=== PATIENT | female | born 1960 ===

== ENCOUNTER → 2018-04-03 | Outpatient (CLI) | payer BC ==
[~2018-04-03] MED LIST: ASP81 PO; CAR6.25 PO; FUR40 PO; GLY25 PO; LIS10 PO; LIS5 PO; MULT1CAP59 PO; NIA500 PO; OMEG-11 PO; PRAV40TA77 PO
--- NOTE | 2018-04-03 10:15 | RADIOLOGY IMAGING REPORT ---
FACILITY: [facility] - [place] PATIENT NAME: ANDRES NAQVI : [id number] MR: [id number] V: [id number] EXAM DATE: [id number] ORDERING PHYSICIAN: YANCY MOMIN TECHNOLOGIST: Sierra Duffy PROCEDURE:BILATERAL DIGITAL SCREENING MAMMOGRAM WITH CAD ASSISTED INTERPRETATION & 3D TOMOSYNTHESIS COMPARISON:Prior mammogram 09/30/12. INDICATIONS:SCREENING FINDINGS: A small amount of fibroglandular tissue is seen throughout the breasts. The parenchymal pattern has remained stable allowing for difference in mammographic technique & patient positioning. There are scattered benign appearing calcifications noted bilaterally. There is no demonstration of malignant appearing mass, malignant appearing calcifications or other secondary sign of malignancy in either breast. DIAGNOSTIC CATEGORY 2--BENIGN FINDING. RECOMMENDATIONS: ROUTINE MAMMOGRAM AND CLINICAL EVALUATION. IMPRESSION: BIRADS 2: Benign finding. No significant abnormality is seen. Dictated by: Carmen Espino M.D. on 04/03/2018 at 9:25 Transcribed by: AURE on 04/03/2018 at 9:38 Approved by: Carmen Espino M.D. on 04/03/2018 at 10:14 [facility]
== END ==
LOC: MAMO 04:13
PROVIDERS: ATTEND Obstetrics & Gynecology
DX: Z12.31 Encounter for screening mammogram for malignant neoplasm of breast (principal)
CPT/HCPCS: 77063; 77067

== ENCOUNTER → 2018-08-07 | Outpatient (CLI) | payer BC ==
--- NOTE | 2018-08-07 12:14 | RADIOLOGY IMAGING REPORT ---
[place] [facility] [place] NAME: Keyla Jo : 1960 MR: [id number] V: [id number] EXAM DATE: ORDERING PHYSICIAN: ZAKIA PATHAK TECHNOLOGIST: Location: [facility] Patient: Keyla Jo : 1960 Visit/Account:[id number] Date of Sevice: 08/07/2018 Chest with lateral, two views. HISTORY: Shortness of breath, cough. COMPARISON: 09/25/2007. The heart is mildly enlarged. Pulmonary vessels are mildly engorged. The mediastinum is not widened . Interstitial markings are minimally thickened bilaterally. No pleural fluid. Degenerative change s and several mild chronic appearing wedge deformities are present in the spine. IMPRESSION: Mild cardiomegaly and mild pulmonary vascular engorgement without kelly congestive heart failure. Report Dictated By: Boaz Gaston MD at 08/07/2018 12:09 PM Report E-Signed By: Boaz Gaston MD at 08/07/2018 12:10 PM WSN:[email or web address]
== END ==
LOC: LAB 11:12
PROVIDERS: ATTEND Internal Medicine Cardiovascular Disease
DX: R06.02 Shortness of breath (principal); I42.0 Dilated cardiomyopathy; I49.3 Ventricular premature depolarization; I10 Essential (primary) hypertension; I51.7 Cardiomegaly
CPT/HCPCS: 36415; 71046; 82310; 82374; 82435; 82565; 82947; 83880; 84132; 84295; 84520; 85027

== ENCOUNTER → 2018-08-10 | Outpatient (CLI) | payer BC | LOC: US 01:31 | PROVIDERS: ATTEND Internal Medicine Cardiovascular Disease | DX: I42.0 Dilated cardiomyopathy (principal); I49.3 Ventricular premature depolarization | CPT/HCPCS: C8929; Q9957 ==

== ENCOUNTER 2018-11-04 17:02 | Emergency (ER) | payer BC ==
[2018-11-04] MEDS ORDERED: NS(*) 0.9% 1000 ML BAG 1,000 ML IV ONE (17:10)
[2018-11-04] MEDS ORDERED: ONDANSETRON 4 MG/2 ML VIAL IVP ONE (17:10)
[2018-11-04] MEDS ORDERED: CARV12.578 PO (17:14)
[2018-11-04] MEDS ORDERED: POTA-23 PO (17:14)
[2018-11-04] MEDS ORDERED: FURO-47 PO (17:14)
[2018-11-04] MEDS ORDERED: DUL100/5PT INH (17:14)
--- NOTE | 2018-11-04 17:18 | ER Report ---
History and Physical Time Seen By MD: 17:17 Hx. of Stated Complaint: N/V, ABDO PAIN SINCE FRIDAY. ASSYMPTOMATIC TODAY (NOÉ ISAACS MD) HPI/ROS CHIEF COMPLAINT: Abdominal pain and abnormal labs HISTORY OF PRESENT ILLNESS: Patient sent here by an outside care facility reportedly had abnormal labs that over the white count greater than 20,000. Intermittent abdominal discomfort primarily left upper left lower for the last couple days however in the last 24 hours and completely pain-free nausea vomit ing one episode of loose stool no chest pain or shortness of breath has been history of diabetes stopped her medication and noticed her sugars in the 300s again patient states that she is currently pain-free and otherwise asymptomatic REVIEW OF SYSTEMS: Respiratory: No cough, no dyspnea. Cardiovascular: No chest pain, no palpitations. Gastrointestinal: Abdominal pain not current no vomiting Musculoskeletal: No back pain. Remainder of the 14 system rev: Yes (NOÉ ISAACS MD) Allergies: Coded Allergies: No Known Drug Allergies (Verified , 09/25/07) Home Meds Active Scripts Ondansetron 4 Mg Odt (ONDANSETRON 4 MG ODT) 4 Mg Tab.rapdis, 4 MG PO Q6H PRN for NAUSEA/VOMITING, #10 TAB Prov:SUJEY ROMAN DO 11/04/18 Ciprofloxacin Hcl 500 Mg Tab (CIPRO 500 MG TAB) 500 Mg Tablet, 500 MG PO BID for infection, #14 TAB Prov:SUJEY ROMAN DO 11/04/18 Reported Medications Mometasone/Formoterol (DULERA 100 MCG/5 MCG INHALER) 13 Gm Inh, 13 GM INH BID, INH 11/04/18 Carvedilol (CARVEDILOL) 12.5 Mg Tablet, 12.5 MG PO BID, #10 TAB 11/04/18 Potassium Chloride (KLOR-CON 10) 10 Meq Tablet.er, 10 MEQ PO QDAY 11/04/18 Furosemide (FUROSEMIDE) 40 Mg Tablet, 1 TAB PO DAILY, TAB 11/04/18 [place]-3 Fatty Acids/Fish Oil (FISH OIL 1,000 MG CAPSULE) Unknown Strength Capsule, PO, CAPSULE 03/13/18 Multivitamin (MULTIVITAMINS) 1 Each Capsule, 1 EACH PO, CAPSULE 03/13/18 Lisinopril (Prinivil) 10 Mg Tab, 10 MG PO QAM, 0 Refills 09/30/07 Aspirin (Childrens Chewable Aspirin) 81 Mg Chew, 81 MG PO QDAY OVER THE COUNTER MEDICATION 09/30/07 Reviewed Nurses Notes: Yes Old Medical Records Reviewed: Yes (NOÉ ISAACS MD) Smoking Status: Never Smoker (NOÉ ISAACS MD) Constitutional Vital Sign - Last 24 Hours 11/04/18 11/04/18 11/04/18 11/04/18 17:09 19:00 19:30 20:00 Temp 98.7 Pulse 95 111 105 99 Resp 20 B/P (MAP) 123/74 116/58 (77) 134/73 (93) 131/72 (91) Pulse Ox 94 87 98 98 O2 Delivery Room Air (SUJEY ROMAN DO) Physical Exam General Appearance: The patient is alert, has no immediate need for airway protection and no current signs of toxicity. [ ] Eyes: Pupils equal and round no injection. Respiratory: Chest is non tender, lungs are clear to auscultation. Cardiac: regular rate and rhythm [ ] Gastrointestinal: Abdomen is soft and non tender, no masses, bowel sounds normal. Musculoskeletal: Neck: Neck is supple and non tender. Extremities have full range of motion and are non tender. Skin: No rashes or lesions. [ ] DIFFERENTIAL DIAGNOSIS: After history and physical exam differential diagnosis was considered for colitis diverticulitis cholangitis pancreatitis (NOÉ ISAACS MD) Medical Decision Making Data Points Result Diagram: 11/04/18 1728 11/04/18 1728 Laboratory Hematology Test 11/04/18 17:28 11/04/18 19:15 11/04/18 20:16 Red Blood Count 4.75 M/uL (4.17-5.56) Mean Corpuscular Volume 85.8 fL (80.0-96.0) Mean Corpuscular Hemoglobin 28.7 pg (26.0-33.0) Mean Corpuscular Hemoglobin Concent 33.4 g/dL (32.0-36.0) Red Cell Distribution Width 14.4 % (11.5-14.5) Mean Platelet Volume 7.9 fL (7.2-11.1) Neutrophils (%) (Auto) 93.3 % (39.4-72.5) Lymphocytes (%) (Auto) 3.0 % (17.6-49.6) Monocytes (%) (Auto) 3.3 % (4.1-12.4) Eosinophils (%) (Auto) 0.1 % (0.4-6.7) Basophils (%) (Auto) 0.3 % (0.3-1.4) Nucleated RBC Relative Count (auto) 0.0 /100WBC Neutrophils # (Auto) 16.4 K/uL (2.0-7.4) Lymphocytes # (Auto) 0.5 K/uL (1.3-3.6) Monocytes # (Auto) 0.6 K/uL (0.3-1.0) Eosinophils # (Auto) 0.0 K/uL (0.0-0.5) Basophils # (Auto) 0.0 K/uL (0.0-0.1) Nucleated RBC Absolute Count (auto) 0.00 K/uL Prothrombin Time 14.8 seconds (12.0-14.4) Prothromb Time International Ratio 1.16 Activated Partial Thromboplast Time 39 seconds (23-35) Sodium Level 128 mmol/L (137-145) Potassium Level 4.0 mmol/L (3.5-5.0) Chloride Level 93 mmol/L (98-107) Carbon Dioxide Level 26 mmol/L (22-31) Blood Urea Nitrogen 31 mg/dl (7-18) Creatinine 1.30 mg/dl (0.52-1.04) Glomerular Filtration Rate Calc 42.1 Random Glucose 369 mg/dl (75-110) Calcium Level 8.7 mg/dl (8.4-10.2) Total Bilirubin 0.5 mg/dl (0.2-1.3) Aspartate Amino Transf (AST/SGOT) 25 U/L (0-35) Alanine Aminotransferase (ALT/SGPT) 22 U/L (0-56) Alkaline Phosphatase 140 U/L (0-126) Total Protein 7.2 g/dl (6.3-8.2) Albumin 3.5 g/dl (3.5-5.0) Lipase 107 U/L (23-300) Serum Alcohol < 10 mg/dl Urine Color Yellow Urine Clarity Slightly-cloudy Urine pH 5.0 pH (4.8-9.5) Urine Specific [place] 1.033 Urine Protein Negative mg/dL (NEGATIVE) Urine Glucose (UA) 50 mg/dL (NEGATIVE) Urine Ketones Negative mg/dL (NEGATIVE) Urine Blood Small (NEGATIVE) Urine Nitrite Negative (NEGATIVE) Urine Bilirubin Negative (NEGATIVE) Urine Urobilinogen Negative mg/dL (0.2-1.9) Urine Leukocyte Esterase Moderate (NEGATIVE) Urine RBC 4 /HPF (0-2/HPF) Urine WBC 50 /HPF (0-5/HPF) Urine Squamous Epithelial Cells Moderate /LPF (</=FEW) Urine Transitional Epithelial Cells Few /LPF (NONE-FEW) Urine Bacteria Negative /HPF (NONE-FEW) Urine Mucus None /HPF (NONE-FEW) Whole Blood Glucose 254 mg/DL (75-110) Chemistry Test 11/04/18 17:28 11/04/18 19:15 11/04/18 20:16 White Blood Count 17.5 k/uL (4.5-11.0) Red Blood Count 4.75 M/uL (4.17-5.56) Hemoglobin 13.6 g/dL (12.0-16.0) Hematocrit 40.8 % (34.0-47.0) Mean Corpuscular Volume 85.8 fL (80.0-96.0) Mean Corpuscular Hemoglobin 28.7 pg (26.0-33.0) Mean Corpuscular Hemoglobin Concent 33.4 g/dL (32.0-36.0) Red Cell Distribution Width 14.4 % (11.5-14.5) Platelet Count 293 K/uL (150-450) Mean Platelet Volume 7.9 fL (7.2-11.1) Neutrophils (%) (Auto) 93.3 % (39.4-72.5) Lymphocytes (%) (Auto) 3.0 % (17.6-49.6) Monocytes (%) (Auto) 3.3 % (4.1-12.4) Eosinophils (%) (Auto) 0.1 % (0.4-6.7) Basophils (%) (Auto) 0.3 % (0.3-1.4) Nucleated RBC Relative Count (auto) 0.0 /100WBC Neutrophils # (Auto) 16.4 K/uL (2.0-7.4) Lymphocytes # (Auto) 0.5 K/uL (1.3-3.6) Monocytes # (Auto) 0.6 K/uL (0.3-1.0) Eosinophils # (Auto) 0.0 K/uL (0.0-0.5) Basophils # (Auto) 0.0 K/uL (0.0-0.1) Nucleated RBC Absolute Count (auto) 0.00 K/uL Prothrombin Time 14.8 seconds (12.0-14.4) Prothromb Time International Ratio 1.16 Activated Partial Thromboplast Time 39 seconds (23-35) Glomerular Filtration Rate Calc 42.1 Calcium Level 8.7 mg/dl (8.4-10.2) Total Bilirubin 0.5 mg/dl (0.2-1.3) Aspartate Amino Transf (AST/SGOT) 25 U/L (0-35) Alanine Aminotransferase (ALT/SGPT) 22 U/L (0-56) Alkaline Phosphatase 140 U/L (0-126) Total Protein 7.2 g/dl (6.3-8.2) Albumin 3.5 g/dl (3.5-5.0) Lipase 107 U/L (23-300) Serum Alcohol < 10 mg/dl Urine Color Yellow Urine Clarity Slightly-cloudy Urine pH 5.0 pH (4.8-9.5) Urine Specific [place] 1.033 Urine Protein Negative mg/dL (NEGATIVE) Urine Glucose (UA) 50 mg/dL (NEGATIVE) Urine Ketones Negative mg/dL (NEGATIVE) Urine Blood Small (NEGATIVE) Urine Nitrite Negative (NEGATIVE) Urine Bilirubin Negative (NEGATIVE) Urine Urobilinogen Negative mg/dL (0.2-1.9) Urine Leukocyte Esterase Moderate (NEGATIVE) Urine RBC 4 /HPF (0-2/HPF) Urine WBC 50 /HPF (0-5/HPF) Urine Squamous Epithelial Cells Moderate /LPF (</=FEW) Urine Transitional Epithelial Cells Few /LPF (NONE-FEW) Urine Bacteria Negative /HPF (NONE-FEW) Urine Mucus None /HPF (NONE-FEW) Whole Blood Glucose 254 mg/DL (75-110) Coagulation Test 11/04/18 17:28 Prothrombin Time 14.8 seconds Prothromb Time International Ratio 1.16 Activated Partial Thromboplast Time 39 seconds Toxicology Test 11/04/18 17:28 Serum Alcohol < 10 mg/dl Urinalysis Test 11/04/18 19:15 Urine Color Yellow Urine Clarity Slightly-cloudy Urine pH 5.0 pH (4.8-9.5) Urine Specific [place] 1.033 Urine Protein Negative mg/dL (NEGATIVE) Urine Glucose (UA) 50 mg/dL (NEGATIVE) Urine Ketones Negative mg/dL (NEGATIVE) Urine Blood Small (NEGATIVE) Urine Nitrite Negative (NEGATIVE) Urine Bilirubin Negative (NEGATIVE) Urine Urobilinogen Negative mg/dL (0.2-1.9) Urine Leukocyte Esterase Moderate (NEGATIVE) Urine RBC 4 /HPF (0-2/HPF) Urine WBC 50 /HPF (0-5/HPF) Urine Squamous Epithelial Cells Moderate /LPF (</=FEW) Urine Transitional Epithelial Cells Few /LPF (NONE-FEW) Urine Bacteria Negative /HPF (NONE-FEW) Urine Mucus None /HPF (NONE-FEW) (SUJEY ROMAN DO) Microbiology Microbiology Date/Time Source Procedure Growth Status 11/04/18 19:15 Clean Catch Midstream Ur Urine Culture - Preliminary Gram Negative Jose Resulted (SUJEY ROMAN DO) EKG/Imaging Imaging Results: CT scan of the abdomen and pelvis with IV contrast was obtained. The results of the study are EXAMINATION: CT abdomen and pelvis with IV contrast HISTORY: Abdominal pain. TECHNIQUE: Axial CT images of the abdomen and pelvis were obtained with IV contrast, with coronal and sagittal 2D reconstructed images. One of the following dose optimization techniques was utilized in the performance of this exam: Automated exposure control; adjustment of the mA and/or kV according to the patient's size; or use of an iterative reconstruction technique. Specific details can be referenced in the facility's radiology CT exam operational policy. Contrast: 75 mL of IV Isovue-370. COMPARISON: 09/29/2007. FINDINGS: Liver: Fatty infiltration of the liver. No focal liver lesion. The hepatic veins and portal veins are patent. Gallbladder and bile ducts: Negative. Spleen: Negative. Pancreas: Negative. Adrenal glands: Negative. Kidneys: Normal size and morphology of both kidneys. There are patchy regions of decreased cortical enhancement in both kidneys suspicious for bilateral pyelonephritis, slightly greater on the left. No urinary calculi or hydronephrosis. Bowel and peritoneum: The small bowel and colon are normal in caliber, without evidence of obstruction or any focal inflammatory process. No bowel wall thickening. Normal appendix. There is a trace amount of free fluid in the pelvis which is nonspecific. No free intraperitoneal air. Pelvic structures: Mild diffuse bladder wall thickening is suspicious for urinary infection/cystitis. Calcified uterine fibroids. No large adnexal cyst. Lymph node assessment: Negative. Vessels: Mild vascular calcifications. Normal caliber abdominal aorta. The IVC is patent. Musculoskeletal: No acute osseous findings. Scattered degenerative changes along the spine. Body wall: Negative. Lung bases: Negative. IMPRESSION: 1. Patchy decreased cortical enhancement in both kidneys is suspicious for bilateral pyelonephritis, greater on the left. 2. No urinary calculi or hydronephrosis. 3. There is additional mild diffuse wall thickening of the urinary bladder suspicious for urinary infection/cystitis. 4. Small amount of free fluid in the pelvis is nonspecific. 5. No other acute intra-abdominal findings. The study was read by the radiologist. I viewed the images myself on the PACS system. (SUJEY ROMAN DO) ED Course/Re-evaluation Clinical Indication for ER IV: Hydration, IV Access ED Course Care was assumed at shift change with diagnostic CT of the abdomen and pelvis pending. The CT scan was positive for bilateral pyelonephritis, right greater than left. Patient's urinalysis eventually returned with gross white cells consistent with infection. Patient is a 17,000 white count with left shift. Her chest x-ray was clear. Patient was given 2 g of Rocephin. She'll be discharged home on Cipro 500 mg by mouth twice a day for infection, medication for nausea. Decision to Disposition Date: November 04, 2018 Decision to Disposition Time: 19:57 (SUJEY ROMAN DO) Depart Departure Latest Vital Signs Vital Signs Date Time Temp Pulse Resp B/P (MAP) Pulse Ox O2 Delivery O2 Flow Rate FiO2 11/04/18 20:00 99 131/72 (91) 98 11/04/18 17:09 98.7 20 Room Air (SUJEY ROMAN DO) Impression: Primary Impression: Pyelonephritis Additional Impression: Type 2 diabetes mellitus with hyperglycemia Condition: Improved Disposition: HOME OR SELF-CARE Referrals: ZORAIDA CARABALLO (PCP) New Scripts Ondansetron 4 Mg Odt (ONDANSETRON 4 MG ODT) 4 Mg Tab.rapdis 4 MG PO Q6H PRN for NAUSEA/VOMITING, #10 TAB Prov: SUJEY ROMAN DO 11/04/18 Ciprofloxacin Hcl 500 Mg Tab (CIPRO 500 MG TAB) 500 Mg Tablet 500 MG PO BID for infection, #14 TAB Prov: SUJEY ROMAN DO 11/04/18 Patient Instructions: Kidney Infection (ED) Additional Instructions: Follow-up with primary care if unimproved in 1-2 days for resumption of care of your diabetes Problem Qualifiers Additional Impression: Type 2 diabetes mellitus with hyperglycemia Diabetes mellitus fpc insulin use: unspecified terminal operator insulin use status Qualified Codes: E11.65 - Type 2 diabetes mellitus with hyperglycemia NOÉ ISAACS MD November 04, 2018 17:18 SUJEY ROMAN DO November 04, 2018 20:01
[2018-11-04] MEDS ORDERED: IOPAMIDOL 76% 150 ML INFUS BTL 150 ML ONE (17:28)
[2018-11-04 17:43] LABS: PLATELET COUNT, AUTOMATED 293 K/uL (150-450)
[2018-11-04 17:52] LABS: INR 1.16
--- NOTE | 2018-11-04 18:44 | RADIOLOGY IMAGING REPORT ---
FACILITY: [facility] PATIENT NAME: Keyla Jo : 1960 MR: [id number] V: [id number] EXAM DATE: ORDERING PHYSICIAN: NOÉ ISAACS TECHNOLOGIST: Location: [facility] Patient: Keyla Jo : 1960 Visit/Account:[id number] Date of Sevice: 11/04/2018 CHEST PA LAT HISTORY: Abdominal pain all over. COMPARISON: August 07, 2018. FINDINGS: Cardiomediastinal contours: The heart size is normal. Lungs and pleura: No findings of an infiltrate or pleural effusion. Bones/soft tissues: There are no findings of a fracture. IMPRESSION: No active disease in the chest. Report Dictated By: Mitchell Santos MD at 11/04/2018 6:38 PM Report E-Signed By: Mitchell Santos MD at 11/04/2018 6:40 PM WSN:[email or web address]
--- NOTE | 2018-11-04 18:56 | RADIOLOGY IMAGING REPORT ---
FACILITY: [facility] PATIENT NAME: Keyla Jo : 1960 MR: [id number] V: [id number] EXAM DATE: ORDERING PHYSICIAN: NOÉ ISAACS TECHNOLOGIST: Location: [facility] Patient: Keyla Jo : 1960 Visit/Account:[id number] Date of Sevice: 11/04/2018 EXAMINATION: CT abdomen and pelvis with IV contrast HISTORY: Abdominal pain. TECHNIQUE: Axial CT images of the abdomen and pelvis were obtained with IV contrast, with coronal a nd sagittal 2D reconstructed images. One of the following dose optimization techniques was utilized in the performance of this exam: Autom ated exposure control; adjustment of the mA and/or kV according to the patient's size; or use of an i terative reconstruction technique. Specific details can be referenced in the facility's radiology C T exam operational policy. Contrast: 75 mL of IV Isovue-370. COMPARISON: 09/29/2007. FINDINGS: Liver: Fatty infiltration of the liver. No focal liver lesion. The hepatic veins and portal veins are patent. Gallbladder and bile ducts: Negative. Spleen: Negative. Pancreas: Negative. Adrenal glands: Negative. Kidneys: Normal size and morphology of both kidneys. There are patchy regions of decreased cortical enhancement in both kidneys suspicious for bilateral pyelonephritis, slightly greater on the left. No urinary calculi or hydronephrosis. Bowel and peritoneum: The small bowel and colon are normal in caliber, without evidence of obstructi on or any focal inflammatory process. No bowel wall thickening. Normal appendix. There is a trace amount of free fluid in the pelvis which is nonspecific. No free intraperitoneal air. Pelvic structures: Mild diffuse bladder wall thickening is suspicious for urinary infection/cysti tis. Calcified uterine fibroids. No large adnexal cyst. Lymph node assessment: Negative. Vessels: Mild vascular calcifications. Normal caliber abdominal aorta. The IVC is patent. Musculoskeletal: No acute osseous findings. Scattered degenerative changes along the spine. Body wall: Negative. Lung bases: Negative. IMPRESSION: 1. Patchy decreased cortical enhancement in both kidneys is suspicious for bilateral pyelonephritis, greater on the left. 2. No urinary calculi or hydronephrosis. 3. There is additional mild diffuse wall thickening of the urinary bladder suspicious for urinary in fection/cystitis. 4. Small amount of free fluid in the pelvis is nonspecific. 5. No other acute intra-abdominal findings. Report Dictated By: Teodoro Fernando MD at 11/04/2018 6:41 PM Report E-Signed By: Teodoro Fernando MD at 11/04/2018 6:52 PM WSN:[email or web address]
[2018-11-04] MEDS ORDERED: cefTRIAXone 2 GM VIAL IVP ONE (19:25)
[2018-11-04] MEDS ORDERED: ONDA4TAB9 PO (19:59)
[2018-11-04] MEDS ORDERED: CIPR-344 PO (19:59)
[2018-11-04 20:00] VITALS: BP 131/72
[2018-11-04] MEDS ORDERED: ONDANSETRON 4 MG ODT TH SL ONE (20:05)
[2018-11-04] MEDS ORDERED: CIPROFLOXACIN 500 MG TAB PO ONE (20:05)
== END 2018-11-04 20:33 | disposition home or self-care (01) ==
LOC: ER 17:21
DX: N12 Tubulo-interstitial nephritis, not specified as acute or chronic (principal); E11.65 Type 2 diabetes mellitus with hyperglycemia
CPT/HCPCS: 36416; 71046; 74177; 80320; 81001; 82948; 83690; 85025; 85610; 85730; 87088; 96361; 96374; 96375; 99284; J0696; J2405; J7030; Q9967; S0119; 82040; 82247; 82310; 82374; 82435; 82565; 82947; 84075; 84132; 84155; 84295; 84450; 84460; 84520; 87077; 87186

== ENCOUNTER → 2019-01-08 | Outpatient (CLI) | payer BC ==
[~2019-01-08] MED LIST changes: +CARV12.578 PO; +CIPR-344 PO; +DUL100/5PT INH; +FURO-47 PO; +NITR-57 PO; +ONDA4TAB9 PO; +POTA-23 PO
== END ==
LOC: LAB 11:04
PROVIDERS: ATTEND Urology
DX: N12 Tubulo-interstitial nephritis, not specified as acute or chronic (principal)
CPT/HCPCS: 81001; 87077; 87088; 87186